=== PATIENT | male | born 1970 | race Caucasian/White ===

== ENCOUNTER 2016-11-26 19:38 | Emergency (ER) | payer BC, MEDICAID ==
[2016-11-26 19:50] VITALS: BP 161/90
[2016-11-26] MEDS ORDERED: Tetracaine 0.5% OPTH.SOL 4 ML* 1 DROP BTL RIGHT EYE ONE (20:20)
[2016-11-26] MEDS ORDERED: Eye Irrigation Solution 30 ML BOTTLE ONE (20:40)
[2016-11-26] MEDS ORDERED: Fluorescein Sodium TOPICAL* 1 MG TEST ONE (20:40)
--- NOTE | 2016-11-26 20:50 | ED ---
Throat Pain/Nasal Congestion - HPI Summary HPI Summary: 45M presents with foreign body in right eye today. He states he got sawed dust into his eye. He states that he tried to wash it out but it would not come out. He states the object in on the upper lid is where it feels that the object is still there. He does not wear contacts or glasses. He denies sinus congestion or ear pain. no change in vision. has photophobia. - History of Current Complaint Chief Complaint: EDEyeProblem Time Seen by Provider: 11/26/16 20:07 - Allergies/Home Medications Allergies/Adverse Reactions: Allergies Allergy/AdvReac Type Severity Reaction Status Date / Time No Known Allergies Allergy Verified 11/26/16 19:48 PMH/Surg Hx/FS Hx/Imm Hx Endocrine/Hematology History: Denies: Hx Anticoagulant Therapy Respiratory History: Denies: Hx Asthma Infectious Disease History: No Infectious Disease History: Denies: Traveled Outside the [place] in Last 30 Days - Family History Known Family History: Negative: Diabetes - Social History Alcohol Use: Occasionally Substance Use Type: Reports: None Smoking Status (MU): Heavy Every Day Tobacco Smoker Review of Systems Negative: Fever Positive: Photophobia, Other - foreign body right eye Negative: Chest Pain Negative: Shortness Of Breath All Other Systems Reviewed And Are Negative: Yes Physical Exam Triage Information Reviewed: Yes Vital Signs On Initial Exam: Initial Vitals Temp Pulse Resp BP Pulse Ox 97.7 F 67 18 161/90 99 11/26/16 19:46 11/26/16 19:46 11/26/16 19:46 11/26/16 19:46 11/26/16 19:46 Vital Signs Reviewed: Yes Appearance: Positive: Pain Distress Skin: Positive: Warm, Dry Head/Face: Positive: Normal Head/Face Inspection Eyes: Positive: EOMI, ZARINA, Other: - foreign body under right upper lid, multiple corneal abrasion on right eye with fluorescein exam ENT: Positive: Normal ENT inspection, Pharynx normal, TMs normal Respiratory/Lung Sounds: Positive: Clear to Auscultation, Breath Sounds Present Cardiovascular: Positive: Normal, RRR Musculoskeletal: Positive: Normal Neurological: Positive: Normal Psychiatric: Positive: Normal - Evelia Coma Scale Coma Scale Total: 15 Procedures - Eye Procedure Alcaine Drops Administered: Yes - fluorscein exam shows multiple abrasions to right eye Eye FB Removal: removal w/ cotton swab Eye Irrigated w/ Saline (ccs): 50 Diagnostics - Vital Signs Vital Signs Temp Pulse Resp BP Pulse Ox 11/26/16 19:46 97.7 F 67 18 161/90 99 - Laboratory Lab Statement: Any lab studies that have been ordered have been reviewed, and results considered in the medical decision making process. EENT Course/Dx - Course Course Of Treatment: 45M presents with foreign body in right eye today. He states he got sawed dust into his eye. He states that he tried to wash it out but it would not come out. He states the object in on the upper lid is where it feels that the object is still there. He does not wear contacts or glasses. He denies sinus congestion or ear pain. no change in vision. has photophobia. on physical exam has foreign body on upper lid. fluorescein stains slows multiple abrasions across eye. will treat with polytrim and have follow up with optho. patient understands and agrees with plan. - Differential Diagnoses Differential Diagnoses: Conjunctivitis, Corneal Abrasion, Foreign Body - Diagnoses Provider Diagnoses: Foreign body of right eye, Corneal abrasion Discharge - Discharge Plan Condition: Good Disposition: HOME Prescriptions: oxyCODONE/Acetamin 5/325 MG* [Percocet 5/325 TAB*] 1 tab PO Q6H PRN #8 tab MDD 4 PRN Reason: Pain Patient Education Materials: Corneal Abrasion (ED) Referrals: Non Staff,Doctor [Primary Care Provider] - Cheko Molina MD [Medical Doctor] - Additional Instructions: Place 1 drop in eye 4 times a day for 7 days Use artificial tears or saline to rinse eye for symptomatic relief Take Tylenol or ibuprofen for pain, use narcotic for break through pain Follow up with ophthalmology within 5 days Return to ED if develop any new or worsening symptoms
[2016-11-26] MEDS ORDERED: Polymyx/Trimethoprim OPTH* 10 ML BTL RIGHT EYE ONE (20:55)
[2016-11-26] MEDS ORDERED: oxyCODONE/Acetamin 5/325 MG* TAB PO ONE (20:56)
== END 2016-11-26 21:15 | disposition home or self-care (01) ==
LOC: ED 19:38
DX: S05.01XA Injury of conjunctiva and corneal abrasion without foreign body, right eye, initial encounter (principal); H53.149 Visual discomfort, unspecified; T15.91XA Foreign body on external eye, part unspecified, right eye, initial encounter; S00.251A Superficial foreign body of right eyelid and periocular area, initial encounter; X58.XXXA Exposure to other specified factors, initial encounter; Y93.9 Activity, unspecified; Y92.9 Unspecified place or not applicable
CPT/HCPCS: 99282; A9270-GY